=== PATIENT | male | born 1950 | race Caucasian/White ===

== ENCOUNTER 2017-02-02 17:12 | Inpatient (IN) | payer OTHER, MEDICARE ==
[~2017-02-02] VITALS: Ht 175.3 cm; Wt 83.8 kg
[2017-02-02 17:15] VITALS: BP 167/77; PULSE 91; RESP 14; TEMP 98.1; O2SAT 100
[2017-02-02 17:19] VITALS: BP 139/69; PULSE 76; RESP 16; O2SAT 99
--- NOTE | 2017-02-02 17:21 | PD ---
HPI Chief Complaint: Cardiac Complaint Time Seen by Provider: 17:18 Travel History International Travel<30 days: No Contact w/Intl Traveler<30days: No Traveled to known affect area: No History of Present Illness HPI Patient is 66-year-old male who is been working outdoors in the heat all week presents emergency department after an apparent cardiac arrest. According to EMS the patient was seen to have a syncopal episode witnessed by his son and chest compressions were started in the field after calling 911. His son arrives later states that 2-3 chest compressions before his father woke up. Fire department arrived on scene and while monitoring the patient he states very clearly on the monitor the heart rate slowed from 60 down to 40s and ultimately he had an asystolic event during which time he was unconscious. While getting up to perform compressions on the patient the patient suddenly came to had a return of spontaneous circulation. On arrival to the hospital the patient states nothing like this is never happened him before he wonders if he has heat exhaustion. Denies any chest pain or shortness of breath. He is actually feeling quite well now. Symptoms started just prior to arrival, severe in nature, resolved. [facility] Social History Alcohol Use: No Tobacco Use: Yes Substance Use: No Allergies-Medications (Allergen,Severity, Reaction): Coded Allergies: No Known Allergies (Unverified , 02/02/17) Review of Systems Except as stated in HPI: all other systems reviewed are Neg Physical Exam Narrative GENERAL: Well-developed well-nourished in obvious distress SKIN: Focused skin assessment warm/dry. HEAD: Atraumatic. Normocephalic. EYES: Pupils equal and round. No scleral icterus. No injection or drainage. ENT: No nasal bleeding or discharge. Mucous membranes pink and moist. NECK: Trachea midline. No JVD. CARDIOVASCULAR: Regular rate and rhythm. No murmur appreciated. 2+ bilateral equal pulses in all 4 extremity's. RESPIRATORY: No accessory muscle use. Clear to auscultation. Breath sounds equal bilaterally. GASTROINTESTINAL: Abdomen soft, non-tender, nondistended. Hepatic and splenic margins not palpable. MUSCULOSKELETAL: No obvious deformities. No clubbing. No cyanosis. No edema. NEUROLOGICAL: Awake and alert. No obvious cranial nerve deficits. Motor grossly within normal limits. Normal speech. PSYCHIATRIC: Appropriate mood and affect; insight and judgment normal. Data Data Last Documented VS Vital Signs Date Time Temp Pulse Resp B/P (MAP) Pulse Ox O2 Delivery O2 Flow Rate FiO2 02/02/17 19:32 69 18 169/83 (111) 94 Room Air 2.00 02/02/17 17:15 98.1 Orders Orders Electrocardiogram (02/02/17 17:18) Ckmb (Isoenzyme) Profile (02/02/17 17:18) Complete Blood Count With Diff (02/02/17 17:18) Comprehensive Metabolic Panel (02/02/17 17:18) Magnesium (Mg) (02/02/17 17:18) Prothrombin Time / Inr (Pt) (02/02/17 17:18) Act Partial Throm Time (Ptt) (02/02/17 17:18) Troponin I (02/02/17 17:18) Chest, Single Ap (02/02/17 17:18) Ecg Monitoring (02/02/17 17:18) Iv Access Insert/Monitor (02/02/17 17:18) Oximetry (02/02/17 17:18) Oxygen Administration (02/02/17 17:18) Sodium Chloride 0.9% Flush (Ns Flush) (02/02/17 17:30) CKMB (02/02/17 17:40) CKMB% (02/02/17 17:40) Sodium Chlorid 0.9% 500 Ml Inj (Ns 500 M (02/02/17 18:30) Sodium Chlor 0.9% 1000 Ml Inj (Ns 1000 M (02/02/17 19:15) Admit Order (Ed Use Only) (02/02/17 ) Labs Laboratory Tests Test 02/02/17 17:40 White Blood Count 9.4 TH/MM3 Red Blood Count 4.01 MIL/MM3 Hemoglobin 13.0 GM/DL Hematocrit 38.3 % Mean Corpuscular Volume 95.5 FL Mean Corpuscular Hemoglobin 32.3 PG Mean Corpuscular Hemoglobin Concent 33.8 % Red Cell Distribution Width 12.8 % Platelet Count 251 TH/MM3 Mean Platelet Volume 7.4 FL Neutrophils (%) (Auto) 65.6 % Lymphocytes (%) (Auto) 21.9 % Monocytes (%) (Auto) 11.4 % Eosinophils (%) (Auto) 0.5 % Basophils (%) (Auto) 0.6 % Neutrophils # (Auto) 6.1 TH/MM3 Lymphocytes # (Auto) 2.0 TH/MM3 Monocytes # (Auto) 1.1 TH/MM3 Eosinophils # (Auto) 0.0 TH/MM3 Basophils # (Auto) 0.1 TH/MM3 CBC Comment DIFF FINAL Differential Comment Prothrombin Time 11.8 SEC Prothromb Time International Ratio 1.1 RATIO Activated Partial Thromboplast Time 22.4 SEC Blood Urea Nitrogen 21 MG/DL Creatinine 1.70 MG/DL Random Glucose 106 MG/DL Total Protein 7.3 GM/DL Albumin 3.9 GM/DL Calcium Level 8.9 MG/DL Magnesium Level 2.0 MG/DL Alkaline Phosphatase 81 U/L Aspartate Amino Transf (AST/SGOT) 27 U/L Alanine Aminotransferase (ALT/SGPT) 23 U/L Total Bilirubin 0.9 MG/DL Sodium Level 142 MEQ/L Potassium Level 3.7 MEQ/L Chloride Level 108 MEQ/L Carbon Dioxide Level 26.6 MEQ/L Anion Gap 7 MEQ/L Estimat Glomerular Filtration Rate 41 ML/MIN Total Creatine Kinase 313 U/L Creatine Kinase MB 2.8 NG/ML Creatine Kinase MB % 0.9 % Troponin I LESS THAN 0.02 NG/ML MDM Medical Decision Making Medical Screen Exam Complete: Yes Emergency Medical Condition: Yes Interpretation(s) EKG was reviewed and showed sinus first degree heart block with a AL interval of 219, QTC is 420, there is an ST segment depression in V5 and V6 no elevations seen. This is a nonspecific findings and an abnormal EKG. Differential Diagnosis Asystole, cardiac arrest, ACS, AMI Narrative Course Patient roomed in the emergency department, his been normal sinus rhythm while in the emergency department, initial labs showed minimal elevation in CK to 300 , creatinine 1.7 presumed JULIANE. Was given a liter of normal saline. Was also given a full dose aspirin. At this time the patient does not meet acute STEMI criteria but I highly recommended that he be placed in observation status for additional workup and he is agreeable. Patient was discussed with Dr. Naomie Anguiano who requests observation status at this time for CDU. Diagnosis Primary Impression: Syncopal episodes Qualified Codes: R55 - Syncope and collapse Admitting Information Admitting Physician Requests: Observation Condition: Stable Ming Coats MD Feb 02, 2017 17:21
[2017-02-02] MEDS ORDERED: SODIUM CHLORIDE 0.9% FLUSH 10 ML FLUSH IVF PRN (17:30)
[2017-02-02 18:01] LABS: AUTOMATED NEUTROPHIL # 6.1 TH/MM3 (1.8-7.7); BASOPHIL # 0.1 TH/MM3 (0-0.2); BASOPHIL % 0.6 % (0.0-2.0); EOSINOPHIL % 0.5 % (0.0-4.0); HEMATOCRIT 38.3 % (39.0-51.0); HEMO FLAGS DIFF FINAL; LYMPH % 21.9 % (9.0-44.0); MEAN CELL VOLUME 95.5 FL (80.0-100.0); MEAN CORPUSCULAR HEMOGLOBIN 32.3 PG (27.0-34.0); MEAN CORPUSCULAR HGB CONC 33.8 % (32.0-36.0); MONO % 11.4 % (0.0-8.0); NEUT % 65.6 % (16.0-70.0); PLATELET COUNT 251 TH/MM3 (150-450); RED BLOOD COUNT 4.01 MIL/MM3 (4.50-5.90); RED CELL DISTRIBUTION WIDTH 12.8 % (11.6-17.2); WHITE BLOOD COUNT 9.4 TH/MM3 (4.0-11.0)
--- NOTE | 2017-02-02 18:03 | RADRPT ---
EXAM DATE/TIME: 02/02/2017 17:32 [place] COMPARISON: No previous studies available for comparison. INDICATIONS : Chest pain. MEDICAL HISTORY : None. SURGICAL HISTORY : None. ENCOUNTER: Initial ACUITY: 1 day PAIN SCORE: 3/10 LOCATION: Bilateral chest FINDINGS: Portable AP view of the chest demonstrates a normal-sized cardiac silhouette. Descending thoracic aor ta is tortuous. No effusion, consolidation, or pneumothorax is visualized. The bones and soft tissues demonstrate no acute abnormality. CONCLUSION: No acute cardiopulmonary abnormality is identified. Clifton Bruno MD on February 02, 2017 at 18:01 Board Certified Radiologist. This report was verified electronically.
[2017-02-02 18:13] LABS: ALT (GPT) 23 U/L (12-78); ANION GAP 7 MEQ/L (5-15); AST (GOT) 27 U/L (15-37); BICARBONATE 26.6 MEQ/L (21.0-32.0); BLOOD UREA NITROGEN 21 MG/DL (7-18); CHLORIDE 108 MEQ/L (98-107); GLOMERULAR FILTRATION RATE 41 ML/MIN (>89); POTASSIUM 3.7 MEQ/L (3.5-5.1); SODIUM (NA) 142 MEQ/L (136-145)
[2017-02-02 18:17] LABS: ALKALINE PHOSPHATASE 81 U/L (45-117); CREATINE KINASE 313 U/L (39-308); TOTAL BILIRUBIN ADULT 0.9 MG/DL (0.2-1.0)
[2017-02-02 18:19] LABS: APTT (PATIENT) 22.4 SEC (24.3-30.1); INTERNATIONAL NORMALIZED RATIO 1.1 RATIO; PROTHROMBIN TIME - PATIENT 11.8 SEC (9.8-11.6)
[2017-02-02] MEDS ORDERED: SODIUM CHLORID 0.9% 500 ML INJ 500 ML IV ONE (18:30)
[2017-02-02 18:36] LABS: CKMB 2.8 NG/ML (0.5-3.6)
[2017-02-02 19:03] VITALS: BP 146/83; PULSE 74; RESP 17; O2SAT 100
[2017-02-02] MEDS ORDERED: SODIUM CHLOR 0.9% 1000 ML INJ 1,000 ML IV ONE (19:15)
[2017-02-02 19:32] VITALS: BP 169/83; PULSE 69; RESP 18; O2SAT 94
[2017-02-02] MEDS ORDERED: ASPIRIN 81 MG CHEW TAB CHEW ONE (19:45)
[2017-02-02] MEDS ORDERED: SODIUM CHLORIDE 0.9% FLUSH 10 ML FLUSH IV FLUSH PRN (20:30)
[2017-02-02] MEDS: SODIUM CHLOR 0.9% 1000 ML INJ 1,000 ML IV SCH (20:47)
[2017-02-02] MEDS: SODIUM CHLORIDE 0.9% FLUSH 10 ML FLUSH IV FLUSH SCH (21:00)
--- NOTE | 2017-02-02 21:17 | HHI.HP ---
[facility] Barrie Padron M.D. Admission Diagnosis Syncope, Possible asytole. Diagnoses: Chief Complaint: Syncope, possible systole Travel History International Travel<30 Days: No Contact w/Intl Traveler <30 Da: No Traveled to Known Affected Are: No History of Present Illness 66-year-old male with a medical history significant for hypertension presents to the hospital after an episode of syncope with possible cardiac arrest. 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 When he came down from the roof he felt lightheaded. His son witnessed him collapse. He called 911 and given to chest compressions and the patient came through. EMS arrived at the scene. Patient had a similar episode and EMS reported the monitor showed asystole during that time. He again came through without any intervention. Patient evaluated in the emergency room, he has no complaints. No chest pain or shortness of breath. No lightheadedness. States he feels back to normal. Review of Systems Constitutional: COMPLAINS OF: Fatigue Cardiovascular: COMPLAINS OF: Syncope Neurologic: DENIES: Headache, Localized weakness Except as stated in HPI: all other systems reviewed are Neg Past Family Social History Past Medical History Hypertension Past Surgical History Hernia repair Reported Medications Losartan 100 mg daily Allergies: Coded Allergies: No Known Allergies (Unverified , 02/02/17) Family History Reviewed and is noncontributory. Social History Patient denies using tobacco. He admits to occasional alcohol. No illicit drug use. Physical Exam Vital Signs Vital Signs Date Time Temp Pulse Resp B/P (MAP) Pulse Ox O2 Delivery O2 Flow Rate FiO2 02/02/17 19:32 69 18 169/83 (111) 94 Room Air 2.00 02/02/17 19:03 74 17 146/83 (104) 100 Nasal Cannula 2.00 02/02/17 17:19 76 16 139/69 (92) 99 Nasal Cannula 2.00 02/02/17 17:15 98.1 91 14 167/77 (107) 100 Physical Exam GENERAL: This is a well-nourished, well-developed patient, in no apparent distress. SKIN: No rashes, ecchymoses or lesions. Cool and dry. HEAD: Atraumatic. Normocephalic. No temporal or scalp tenderness. EYES: Pupils equal round and reactive. Extraocular motions intact. No scleral icterus. No injection or drainage. ENT: Nose without bleeding, purulent drainage or septal hematoma. Throat without erythema, tonsillar hypertrophy or exudate. Uvula midline. Airway patent. NECK: Trachea midline. No JVD or lymphadenopathy. Supple, nontender, no meningeal signs. CARDIOVASCULAR: Regular rate and rhythm without murmurs, gallops, or rubs. RESPIRATORY: Clear to auscultation. Breath sounds equal bilaterally. No wheezes , rales, or rhonchi. GASTROINTESTINAL: Abdomen soft, non-tender, nondistended. No hepato-splenomegaly , or palpable masses. No guarding. MUSCULOSKELETAL: Extremities without clubbing, cyanosis, or edema. No joint tenderness, effusion, or edema noted. No calf tenderness. Negative Homans sign bilaterally. NEUROLOGICAL: Awake and alert. Cranial nerves II through XII intact. Motor and sensory grossly within normal limits. Five out of 5 muscle strength in all muscle groups. Normal speech. Laboratory Laboratory Tests Test 02/02/17 17:40 White Blood Count 9.4 Red Blood Count 4.01 Hemoglobin 13.0 Hematocrit 38.3 Mean Corpuscular Volume 95.5 Mean Corpuscular Hemoglobin 32.3 Mean Corpuscular Hemoglobin Concent 33.8 Red Cell Distribution Width 12.8 Platelet Count 251 Mean Platelet Volume 7.4 Neutrophils (%) (Auto) 65.6 Lymphocytes (%) (Auto) 21.9 Monocytes (%) (Auto) 11.4 Eosinophils (%) (Auto) 0.5 Basophils (%) (Auto) 0.6 Neutrophils # (Auto) 6.1 Lymphocytes # (Auto) 2.0 Monocytes # (Auto) 1.1 Eosinophils # (Auto) 0.0 Basophils # (Auto) 0.1 CBC Comment DIFF FINAL Differential Comment Prothrombin Time 11.8 Prothromb Time International Ratio 1.1 Activated Partial Thromboplast Time 22.4 Blood Urea Nitrogen 21 Creatinine 1.70 Random Glucose 106 Total Protein 7.3 Albumin 3.9 Calcium Level 8.9 Magnesium Level 2.0 Alkaline Phosphatase 81 Aspartate Amino Transf (AST/SGOT) 27 Alanine Aminotransferase (ALT/SGPT) 23 Total Bilirubin 0.9 Sodium Level 142 Potassium Level 3.7 Chloride Level 108 Carbon Dioxide Level 26.6 Anion Gap 7 Estimat Glomerular Filtration Rate 41 Total Creatine Kinase 313 Creatine Kinase MB 2.8 Creatine Kinase MB % 0.9 Troponin I LESS THAN 0.02 Result Diagram: 02/02/17 1740 02/02/17 1740 Imaging Last Impressions Chest X-Ray 02/02/17 1718 Signed Impressions: Service Date/Time: Thursday, February 02, 2017 17:32 - CONCLUSION: No acute cardiopulmonary abnormality is identified. MD Marychuy Nielsen VTE Risk Assessment Marychuy VTE Risk Assessment: No/Low Risk (score <= 1) Hollandrini Risk Assessment Model Point Value = 1 Point Value = 2 Point Value = 3 Point Value = 5 Age 41-60 Minor surgery BMI > 25 kg/m2 Swollen legs Varicose veins or History of unexplained or recurrent spontaneous Oral contraceptives or hormone replacement Sepsis (< 1 month) Serious lung disease, including pneumonia (< 1 month) Abnormal pulmonary function Acute myocardial infarction Congestive heart failure (< 1 month) History of inflammatory bowel disease Medical patient at bed rest Age 61-74 Arthroscopic surgery Major open surgery (> 45 min) Laparoscopic surgery (> 45 min) Malignancy Confined to bed (> 72 hours) Immobilizing plaster cast Central venous access Age >= 75 History of VTE Family history of VTE Factor V Leiden Prothrombin [id number] Lupus anticoagulant Anticardiolipin antibodies Elevated serum homocysteine Heparin-induced thrombocytopenia Other congenital or acquired thrombophilia Stroke (< 1 month) Elective arthroplasty Hip, pelvis, or leg fracture Acute spinal cord injury (< 1 month) Prophylaxis Regimen Total Risk Factor Score Risk Level Prophylaxis Regimen 0-1 Low Early ambulation 2 Moderate Order ONE of the following: *Sequential Compression Device (SCD) *Heparin 5000 units SQ BID 3-4 Higher Order ONE of the following medications: *Heparin 5000 units SQ TID *Enoxaparin/Lovenox 40 mg SQ daily (WT < 150 kg, CrCl > 30 mL/min) *Enoxaparin/Lovenox 30 mg SQ daily (WT < 150 kg, CrCl > 10-29 mL/min) *Enoxaparin/Lovenox 30 mg SQ BID (WT < 150 kg, CrCl > 30 mL/min) AND/OR *Sequential Compression Device (SCD) 5 or more Highest Order ONE of the following medications: *Heparin 5000 units SQ TID (Preferred with Epidurals) *Enoxaparin/Lovenox 40 mg SQ daily (WT < 150 kg, CrCl > 30 mL/min) *Enoxaparin/Lovenox 30 mg SQ daily (WT < 150 kg, CrCl > 10-29 mL/min) *Enoxaparin/Lovenox 30 mg SQ BID (WT < 150 kg, CrCl > 30 mL/min) AND *Sequential Compression Device (SCD) Assessment and Plan Problem List: (1) Hypertension ICD Code: I10 - Essential (primary) hypertension (2) Syncope and collapse ICD Code: R55 - Syncope and collapse Assessment and Plan 66-year-old male with a history of hypertension admitted after an episode of syncope and collapse. There was report of possible cardiac arrest in the field by EMS. EKG shows sinus rhythm with first-degree AV block - Admit patient on telemetry. - Serial cardiac enzymes and EKG. 2-D echocardiogram. He was given an aspirin. - Consult cardiology Acute renal insufficiency: Likely secondary to prerenal azotemia from dehydration. - Continue IV fluid. Recheck BMP in am. Hypertension: Continue losartan GI prophylaxis: Stool softener PRN constipation. DVT PPx: Heparin Discussed Condition With Dr. Coats. Physician Certification 2 Midnight Certification Type: Admission for Inpatient Services Order for Inpatient Services The services are ordered in accordance with Medicare regulations or non- Medicare payer requirements, as applicable. In the case of services not specified as inpatient-only, they are appropriately provided as inpatient services in accordance with the 2-midnight benchmark. Estimated LOS (days): 2 days is the estimated time the patient will need to remain in the hospital, assuming treatment plan goals are met and no additional complications. Post-Hospital Plan: Home Brijesh Quinn MD Feb 02, 2017 21:17
[2017-02-02 22:00] VITALS: BP 140/79; PULSE 75; RESP 16; TEMP 97.5; O2SAT 100
[2017-02-02 23:24] VITALS: PULSE 78
[2017-02-03] VITALS (7 sets, daily range): BP systolic 140–161; BP diastolic 66–77; PULSE 65–83; RESP 16–20; TEMP 97.4–98.5; O2SAT 98–100
[2017-02-03] MEDS: HEPARIN SODIUM - SQ 10,000 UNITS/ML VIAL SQ SCH ×3 (01:17→23:06)
[2017-02-03] MEDS: SODIUM CHLOR 0.9% 1000 ML INJ 1,000 ML IV SCH (05:46)
[2017-02-03 08:25] LABS: AUTOMATED NEUTROPHIL # 4.8 TH/MM3 (1.8-7.7); BASOPHIL % 0.6 % (0.0-2.0); EOSINOPHIL # 0.1 TH/MM3 (0-0.4); EOSINOPHIL % 0.7 % (0.0-4.0); HEMATOCRIT 34.6 % (39.0-51.0); HEMO FLAGS DIFF FINAL; LYMPH % 22.9 % (9.0-44.0); LYMPHOCYTE # 1.7 TH/MM3 (1.0-4.8); MEAN CELL VOLUME 95.6 FL (80.0-100.0); MEAN CORPUSCULAR HGB CONC 34.6 % (32.0-36.0); NEUT % 65.8 % (16.0-70.0); PLATELET COUNT 217 TH/MM3 (150-450); RED BLOOD COUNT 3.62 MIL/MM3 (4.50-5.90); RED CELL DISTRIBUTION WIDTH 12.9 % (11.6-17.2); WHITE BLOOD COUNT 7.3 TH/MM3 (4.0-11.0)
[2017-02-03] MEDS: LOSARTAN 50 MG TAB PO SCH ×2 (09:04→20:02)
[2017-02-03] MEDS: SODIUM CHLORIDE 0.9% FLUSH 10 ML FLUSH IV FLUSH SCH ×2 (09:04→20:02)
[2017-02-03 09:05] LABS: ANION GAP 8 MEQ/L (5-15); BICARBONATE 23.5 MEQ/L (21.0-32.0); BLOOD UREA NITROGEN 20 MG/DL (7-18); CHLORIDE 110 MEQ/L (98-107); GLOMERULAR FILTRATION RATE 82 ML/MIN (>89); POTASSIUM 3.7 MEQ/L (3.5-5.1); SODIUM (NA) 141 MEQ/L (136-145)
--- NOTE | 2017-02-03 11:39 | EKG ---
Date Performed: 02/02/2017 Time Performed: 17:18:49 PTAGE: 66 years EKG: Sinus rhythm WITH FIRST DEGREE AV BLOCK LEFT VENTRICULAR HYPERTROPHY AND ST-T CHANGE POSSIBLE SEPTAL MYOCARDIAL I NFARCTION ABNORMAL ECG NO PREVIOUS TRACING DOCTOR: Uli Urbano Interpretating Date/Time 02/03/2017 11:36:31
--- NOTE | 2017-02-03 11:56 | EKG ---
Date Performed: 02/02/2017 Time Performed: 22:17:35 PTAGE: 66 years EKG: Sinus rhythm WITH FIRST DEGREE AV BLOCK LEFT VENTRICULAR HYPERTROPHY AND ST-T CHANGE POSSIBLE SEPTAL MYOCARDIAL I NFARCTION , PROBABLY OLD ABNORMAL ECG Compared to prior tracing no significant change PREVIOUS TRACING : 02/02/2017 17.18 DOCTOR: Uli Urbano Interpretating Date/Time 02/03/2017 11:54:17
--- NOTE | 2017-02-03 11:57 | EKG ---
Date Performed: 02/03/2017 Time Performed: 05:24:04 PTAGE: 66 years EKG: Sinus rhythm with borderline 1st degree A-V block Possible anteroseptal infarct - age undetermined Inferior/later al T wave changes may be due to myocardial ischemia Compared to prior tracing no significant change A bnormal ECG PREVIOUS TRACING : 02/02/2017 22.17 DOCTOR: Uli Urbano Interpretating Date/Time 02/03/2017 11:54:25
--- NOTE | 2017-02-03 15:27 | HHI.PR ---
Subjective Remarks Follow-up syncope and acute kidney injury. Patient has no complaints at this time. Remembers being dizzy prior to passing out. Denies chest pain and shortness of breath. He has good exercise tolerance walks 5-6 miles a day in 75 minutes without symptomatology. Discussed with RN Objective Vitals Vital Signs Date Time Temp Pulse Resp B/P (MAP) Pulse Ox O2 Delivery O2 Flow Rate FiO2 02/03/17 11:51 98.5 65 16 142/76 (98) 99 02/03/17 08:00 71 02/03/17 08:00 97.4 74 18 144/71 (95) 98 02/03/17 04:00 97.5 70 16 161/77 (105) 98 02/03/17 00:00 97.4 83 17 144/73 (96) 100 02/02/17 23:24 78 02/02/17 22:00 97.5 75 16 140/79 (99) 100 02/02/17 19:32 69 18 169/83 (111) 94 Room Air 2.00 02/02/17 19:03 74 17 146/83 (104) 100 Nasal Cannula 2.00 02/02/17 17:19 76 16 139/69 (92) 99 Nasal Cannula 2.00 02/02/17 17:15 98.1 91 14 167/77 (107) 100 I/O 02/02/17 02/02/17 02/02/17 02/03/17 02/03/17 02/03/17 07:00 15:00 23:00 07:00 15:00 23:00 Intake Total 1500 ml 1960 ml Balance 1500 ml 1960 ml Intake Oral 960 ml IV Total 1500 ml 1000 ml # Voids 3 Result Diagram: 02/03/17 0715 02/03/17 0715 Imaging Last Impressions Chest X-Ray 02/02/17 2138 Signed Impressions: Service Date/Time: Thursday, February 02, 2017 17:32 - CONCLUSION: No acute cardiopulmonary abnormality is identified. Clifton Bruno MD Objective Remarks Well-developed, well-nourished, in no distress on room air Pupils reactive to light no jaundice No JVD no bruit Regular rate and rhythm no murmur Equal in expansion care to auscultation Abdomen soft nontender Extremity is no edema no cyanosis Alert and oriented 3 nonfocal Procedures None A/P Problem List: (1) Hypertension ICD Code: I10 - Essential (primary) hypertension (2) Syncope and collapse ICD Code: R55 - Syncope and collapse Assessment and Plan 66-year-old male with a history of hypertension admitted after an episode of syncope and collapse. There was report of possible cardiac arrest in the field by EMS. EKG shows sinus rhythm with first-degree AV block -Telemetry unremarkable we'll continue monitoring -Negative cardiac enzymes. Follow-up echocardiogram. He was given an aspirin. -Follow up cardiology consult Acute kidney injury from dehydration. Improved with IV hydration. Likely etiology for syncope -Discontinue IV fluids Hypertension: Continue losartan GI prophylaxis: Stool softener PRN constipation. DVT PPx: Heparin Discharge Planning Discharge when cleared by cardiology Haris Borges MD Feb 03, 2017 15:27
--- NOTE | 2017-02-03 15:28 | HHI.DCPOC ---
Discharge Care Plan Diagnosis: (1) Hypertension (2) Syncope and collapse Your Health Problems Are: Difficulty with ADL Exercise Tolerance Goals to Promote Your Health * To prevent worsening of your condition and complications * To maintain your health at the optimal level Directions to Meet Your Goals Take your medications as prescribed Follow your dietary instruction Follow activity as directed Keep your appointments as scheduled Take your immunizations and boosters as scheduled If your symptoms worsen call your PCP, if no PCP go to Urgent Care Center or Emergency Room Smoking is Dangerous to Your Health. Avoid second hand smoke Call the 24-hour hour crisis hotline for domestic abuse at Haris Borges MD Feb 03, 2017 15:28
--- NOTE | 2017-02-03 17:02 | MB ---
cc: KIRSTIN LARES M.D. DATE OF CONSULTATION 02/03/2017 REASON FOR CONSULTATION Syncope. HISTORY OF PRESENT ILLNESS The patient is a 66-year-old white male with a history of hypertension who presented to the hospital after two syncopal episodes yesterday. 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 He felt lightheaded for a few seconds and then lost consciousness. Emergency services were called. A few minutes later while standing he be he began to feel lightheaded again and lost consciousness for a second time reportedly for a few seconds. Apparently on monitoring he was felt to have an episode of asystole during the second episode. The patient denies any other episodes of syncope. He also denies chest pain, nausea, shortness of breath, palpitations, pedal edema, paroxysmal nocturnal dyspnea. The patient also states that he had not urinated for 14 hours before finally urinating about 01:30 this morning. Since coming into the hospital he states he feels "just fine." PAST MEDICAL HISTORY Hypertension. PAST SURGICAL HISTORY Hernia repair. MEDICATIONS Losartan 100 mg daily. ALLERGIES NO KNOWN DRUG ALLERGIES. FAMILY HISTORY There is no significant family history of early myocardial infarction or sudden cardiac . His father in his 40s from liver cirrhosis. SOCIAL HISTORY The patient denies alcohol or tobacco abuse. REVIEW OF SYSTEMS As in the history of present illness otherwise negative or noncontributory. He also denies headache, visual changes, unilateral weakness or numbness, abdominal pain, melena, diarrhea, fevers, bright red blood per rectum. PHYSICAL EXAMINATION VITAL SIGNS: On physical examination his blood pressure 142/76 with a pulse of 65, respirations 16. GENERAL: He is a well-developed, well-nourished white male in no acute distress. HEENT: On HEENT examination jugular venous pressure is normal. Carotid pulses are 2+ bilaterally and without bruits. CHEST: Examination of the chest reveals clear lung overton. CARDIOVASCULAR: On cardiac examination he has a regular rhythm and rate without S3-S4 or murmur. ABDOMEN: On abdominal examination he has a soft, nontender abdomen. Bowel sounds are present. There is no definite hepatosplenomegaly. EXTREMITIES: Examination of extremities reveals no clubbing, cyanosis or edema. LABORATORY DATA Includes WBC 7.3, hemoglobin 12.0, platelets 217. BUN 21 with creatinine 1.7 on admission, improving to a creatinine of 0.93 today. Potassium 3.7. IMAGING Chest x-ray shows no acute disease. EKG shows sinus rhythm, nonspecific lateral T-wave abnormalities. IMPRESSION Syncopal episodes yesterday in this 66-year-old white male with a history of hypertension. Unfortunately rhythm strips are not available from the emergency services. Apparently he may have had an episode of asystole. I suspect his episodes of loss of consciousness were due primarily to dehydration and possibly vasovagal-mediated syncope. He is on no AV micki suppressing drugs. Of note, his left ventricular function on echo appears to be mildly reduced. The etiology of his cardiomyopathy may be somewhat suboptimally controlled hypertension. There is no evidence for acute coronary syndrome. EKGs show nonspecific changes. Cardiac enzymes are negative for myocardial infarction. There has been no evidence for ventricular tachyarrhythmias. RECOMMENDATIONS 1. Continued cardiac monitoring for at least another 24 hours. On discharge consider placement of a 3 week monitor. 2. In light of his reduced ejection fraction of 40-45% recommend adding a beta ian metoprolol 50 mg b.i.d. and continue his angiotensin receptor ian. 3. Repeat echo in about 3 months. 4. Should he have recurrent syncope in the future consider surgical implantation of a loop recorder. MD LASHA Graves/KK /4:32 PM /4:45 PM LADONNA
--- NOTE | 2017-02-03 17:26 | ECHRPT ---
Indication: SYNCOPE CONCLUSIONS Normal left ventricular size. Mild concentric left ventricular hypertrophy. The left ventricular systolic function is low normal with an estimated ejection fraction in the rang e of 50- 55%. The right ventricular size is normal. The left atrial size is mildly dilated. The right atrial size is mildly dilated. No atrial level shunt is demonstrated by color flow Doppler interrogation. Trace mitral valve regurgitation. Aortic valve sclerosis is present. Mild aortic valve regurgitation. No aortic valve stenosis. No tricuspid regurgitation. The pulmonary valve is not well visualized. The inferior vena cava is dilated. There is less than 50% respiratory change in dimension of the inferior vena cava (abnormal). BP: 161 / 77 HR: 70 Rhythm: Sinus MEASUREMENTS (Male / Female) Normal Values Technical Quality:Fair 2D ECHO LV Diastolic Diameter PLAX 4.7 cm 4.2 - 5.9 / 3.9 - 5.3 cm LV Systolic Diameter PLAX 3.9 cm IVS Diastolic Thickness 1.2 cm 0.6 - 1.0 / 0.6 - 0.9 cm LVPW Diastolic Thickness 1.2 cm 0.6 - 1.0 / 0.6 - 0.9 cm LV Relative Wall Thickness 0.5 LVOT Diameter 2.5 cm Aortic Root Diameter 3.5 cm LA Systolic Diameter LX 3.2 cm 3.0 - 4.0 / 2.7 - 3.8 cm M-MODE AV Cusp Separation MM 2.5 cm DOPPLER AV Peak Velocity 110.0 cm/s AV Peak Gradient 4.8 mmHg AV Mean Gradient 3.0 mmHg AV Velocity Time Integral 24.5 cm AI Peak Velocity 414.0 cm/s AI Peak Gradient 68.6 mmHg AI Pressure Half Time 384.0 ms LVOT Peak Velocity 67.7 cm/s LVOT Peak Gradient 1.8 mmHg LVOT Velocity Time Integral 13.1 cm LVOT Cardiac Index 2283.7 cm/minm AV Area Cont Eq vti 2.6 cm AV Area Cont Eq pk 3.0 cm Mitral E Point Velocity 84.4 cm/s Mitral A Point Velocity 73.5 cm/s Mitral E to A Ratio 1.1 LV E' Lateral Velocity 9.8 cm/s Mitral E to LV E' Lateral Ratio 8.6 LV E' Septal Velocity 6.2 cm/s Mitral E to LV E' Septal Ratio 13.5 PV Peak Velocity 51.1 cm/s PV Peak Gradient 1.0 mmHg FINDINGS LEFT VENTRICLE Normal left ventricular size. Mild concentric left ventricular hypertrophy. The left ventricular systolic function is low normal with an estimated ejection fraction in the rang e of 50- 55%. Left ventricular diastolic function parameters are normal. RIGHT VENTRICLE The right ventricular size is normal. LEFT ATRIUM The left atrial size is mildly dilated. RIGHT ATRIUM The right atrial size is mildly dilated. ATRIAL SEPTUM No atrial level shunt is demonstrated by color flow Doppler interrogation. AORTA The aortic root and proximal ascending aorta are normal in size on limited imaging. MITRAL VALVE Structurally normal mitral valve. Trace mitral valve regurgitation. AORTIC VALVE Aortic valve sclerosis is present. Mild aortic valve regurgitation. No aortic valve stenosis. TRICUSPID VALVE Structurally normal tricuspid valve. No tricuspid regurgitation. PULMONARY VALVE The pulmonary valve is not well visualized. VESSELS The inferior vena cava is dilated. There is less than 50% respiratory change in dimension of the inferior vena cava (abnormal). PERICARDIUM No pericardial effusion. Barry Morales MD, FACC (Electronically Signed) Final Date:03 February 2017 17:25
[2017-02-03] MEDS: METOPROLOL TARTRATE 50 MG TAB PO SCH (19:58)
[2017-02-04] VITALS: BP 137/64; PULSE 62; RESP 16; TEMP 97.9; O2SAT 97
[2017-02-04 04:00] VITALS: BP 150/74; PULSE 66; RESP 20; TEMP 97.9; O2SAT 97
[2017-02-04 08:00] VITALS: BP 143/68; PULSE 57; RESP 20; TEMP 97.9; O2SAT 99
--- NOTE | 2017-02-04 08:25 | PD.CARD.PN ---
Subjective Subjective Remarks No further syncope. No dizziness, CP, nausea, palpitations. Objective Medications Item Value Date Time Metoprolol 50 mg 02/03/17 2100 Tartrate Q12HR/PO 02/03/171957 (Lopressor) Losartan Potassium 50 mg 02/03/17 0900 (Cozaar) Q12HR/PO 02/03/172001 Heparin Sodium 5,000 units 02/03/17 0000 (Porcine) Q12H/SQ 02/03/17 2306 (Heparin Inj) Vital Signs / I&O Vital Signs Date Time Temp Pulse Resp B/P (MAP) Pulse Ox O2 Delivery O2 Flow Rate FiO2 02/04/17 04:00 97.9 66 20 150/74 (99) 97 02/04/17 00:00 97.9 62 16 137/64 (88) 97 02/03/17 20:05 68 02/03/17 19:09 97.6 72 20 142/76 (98) 99 02/03/17 16:00 98.1 70 20 140/66 (90) 99 02/03/17 11:51 98.5 65 16 142/76 (98) 99 I/O 02/03/17 02/03/17 02/03/17 02/04/17 02/04/17 02/04/17 07:00 15:00 23:00 07:00 15:00 23:00 Intake Total 1960 ml 1780 ml Output Total 1200 ml Balance 1960 ml 580 ml Intake Oral 960 ml 780 ml IV Total 1000 ml 1000 ml Output Urine Total 1200 ml # Voids 3 0 # Bowel Movements 0 Physical Exam GENERAL: Well developed, well nourished. No acute distress. HEENT: Jugular venous pressure is normal. CHEST: Lungs clear to auscultation bilaterally. Unlabored respiratory effort. CARDIAC: Regular rate and rhythm without S3, S4, or murmur. ABDOMEN: Soft, nontender, no hepatosplenomegaly. Bowel sounds present. EXTREMITIES: No clubbing, cyanosis, or edema. Assessment and Plan Problem List: (1) Syncopal episodes ICD Codes: R55 - Syncope and collapse Status: Acute Plan: Stable overnight. No further syncope. Monitoring since admission normal. Overall suspect his syncopal episodes were due to dehydration and vasovagal syncope. 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 No CHF. Echo EF reported as 50-55% but apical views clearly suggest EF closer to 40-45%. No segmental wall motion abnormalities are noted. Suspect the cardiomyopathy is non-ischemic in etiology, possibly hypertension. 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 Suspect his cardiomyopathy may be due to suboptimal BP control. Rec increase Losartan to 150 mg qd, continue metoprolol 50 mg bid, close f/u with his PCP. Code Status full code Discussed Condition With patient Problem Qualifiers (1) Syncopal episodes: Qualified Codes: R55 - Syncope and collapse (2) Hypertension: Qualified Codes: I10 - Essential (primary) hypertension Panda Murguia MD Feb 04, 2017 08:25
[2017-02-04] MEDS ORDERED: COZA50TA PO (08:34)
[2017-02-04] MEDS ORDERED: METO-309 PO (08:34)
[2017-02-04] MEDS ORDERED: LOSARTAN 50 MG TAB PO SCH (09:00)
[2017-02-04 09:24] VITALS: PULSE 64
[2017-02-04] MEDS: METOPROLOL TARTRATE 50 MG TAB PO SCH (09:28)
[2017-02-04] MEDS: SODIUM CHLORIDE 0.9% FLUSH 10 ML FLUSH IV FLUSH SCH (09:29)
[2017-02-04 12:00] VITALS: BP 150/67; PULSE 56; RESP 20; TEMP 98.2; O2SAT 98
[2017-02-04] MEDS: HEPARIN SODIUM - SQ 10,000 UNITS/ML VIAL SQ SCH (12:31)
--- NOTE | 2017-02-04 14:04 | HHI.DS ---
Discharge Summary Admission Date Feb 02, 2017 at 20:55 Discharge Date: Feb 04, 2017 Admitting Diagnosis Syncope, Possible asytole. (1) Hypertension ICD Code: I10 - Essential (primary) hypertension Diagnosis: Principal (2) Syncope and collapse ICD Code: R55 - Syncope and collapse Procedures None Brief History - From Admission 66-year-old male with a medical history significant for hypertension presents to the hospital after an episode of syncope with possible cardiac arrest. 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 When he came down from the roof he felt lightheaded. His son witnessed him collapse. He called 911 and given to chest compressions and the patient came through. EMS arrived at the scene. Patient had a similar episode and EMS reported the monitor showed asystole during that time. He again came through without any intervention. Patient evaluated in the emergency room, he has no complaints. No chest pain or shortness of breath. No lightheadedness. States he feels back to normal. CBC/BMP: 02/03/17 0715 02/03/17 0715 Significant Findings Laboratory Tests Test 02/02/17 17:40 02/03/17 07:15 Red Blood Count 4.01 MIL/MM3 (4.50-5.90) 3.62 MIL/MM3 (4.50-5.90) Hematocrit 38.3 % (39.0-51.0) 34.6 % (39.0-51.0) Monocytes (%) (Auto) 11.4 % (0.0-8.0) 10.0 % (0.0-8.0) Monocytes # (Auto) 1.1 TH/MM3 (0-0.9) Prothrombin Time 11.8 SEC (9.8-11.6) Activated Partial Thromboplast Time 22.4 SEC (24.3-30.1) Blood Urea Nitrogen 21 MG/DL (7-18) 20 MG/DL (7-18) Creatinine 1.70 MG/DL (0.60-1.30) Chloride Level 108 MEQ/L (98-107) 110 MEQ/L (98-107) Estimat Glomerular Filtration Rate 41 ML/MIN (>89) 82 ML/MIN (>89) Total Creatine Kinase 313 U/L (39-308) Troponin I LESS THAN 0.02 NG/ML LESS THAN 0.02 NG/ML Hemoglobin 12.0 GM/DL (13.0-17.0) Calcium Level 7.6 MG/DL (8.5-10.1) Imaging Last Impressions Chest X-Ray 02/02/17 4948 Signed Impressions: Service Date/Time: Thursday, February 02, 2017 17:32 - CONCLUSION: No acute cardiopulmonary abnormality is identified. Clifton Bruno MD PE at Discharge Well-developed, well-nourished, in no distress on room air Pupils reactive to light no jaundice No JVD no bruit Regular rate and rhythm no murmur Equal in expansion care to auscultation Abdomen soft nontender Extremity is no edema no cyanosis Alert and oriented 3 nonfocal Hospital Course 66-year-old male with a history of hypertension admitted after an episode of syncope and collapse. There was report of possible cardiac arrest in the field by EMS. EKG shows sinus rhythm with first-degree AV block -Telemetry unremarkable we'll continue monitoring -Negative cardiac enzymes. Follow-up echocardiogram EF 50% . He was given an aspirin. -Follow up cardiology consult impression is vasovagal and dehydration. Added beta ian for better BP control and possible cardiomyopathy with low normal EF. He suspects nonischemic Acute kidney injury from dehydration. Improved with IV hydration. Likely etiology for syncope -Discontinue IV fluids Hypertension: Continue losartan. Lopressor added GI prophylaxis: Stool softener PRN constipation. DVT PPx: Heparin Pt Condition on Discharge: Stable Discharge Disposition: Discharge Home Discharge Time: > 30 minutes Discharge Instructions DIET: Follow Instructions for: Heart Healthy Diet Activities you can perform: Regular-No Restrictions Activities to Avoid: Driving Follow up Referrals: Cardiology - 3 Weeks PCP Follow-up - 1 Week New Medications: Losartan (Cozaar) 50 Mg Tab 150 MG PO DAILY for Blood Pressure Management, #60 TAB Metoprolol Tartrate (Lopressor) 50 Mg Tab 50 MG PO Q12HR for Prevent Heart Failure, #60 TAB Additional Information No driving until seen by PCP Haris Borges MD Feb 04, 2017 14:04
== END 2017-02-04 16:01 | disposition home or self-care (01) | DRG 641 ==
LOC: NEPE 17:12 → NEDA 19:38 → OBSVTOIN 20:55 → N04B 22:00
PROVIDERS: ADMIT Internal Medicine; ATTEND Internal Medicine
DX: E86.0 Dehydration (principal); N17.9 Acute kidney failure, unspecified; I42.0 Dilated cardiomyopathy; R55 Syncope and collapse; I10 Essential (primary) hypertension; I44.0 Atrioventricular block, first degree; Z72.0 Tobacco use
CPT/HCPCS: 71010; 80048; 80053; 82550; 82552; 83735; 84484; 85025; 85610; 85730; 93005; 93306; 99285; J1644; J7030; J7040